=== PATIENT | female | born 1990 ===

== ENCOUNTER 2018-05-12 10:43 | Emergency (ER) | payer OTHER ==
[~2018-05-12] VITALS: Ht 172.7 cm; Wt 113.6 kg
[2018-05-12 10:48] VITALS: BP 162/100
[2018-05-12 12:08] LABS: BASOPHILS # (AUTO) 0.07 x10^3/uL (0-0.1); BASOPHILS % (AUTO) 1 % (0-1); EOSINOPHILS # (AUTO) 0.02 x10^3/uL (0-0.4); EOSINOPHILS % (AUTO) 0 % (1-7); LYMPHOCYTES # (AUTO) 2.78 x10^3/uL (1-3.4); LYMPHOCYTES % (AUTO) 17 % (22-44); MD NO; MEAN CORPUSCULAR HEMOGLOBIN 28.1 pg (27.0-34.8); MEAN CORPUSCULAR HGB CONC 33.6 g/dL (32.4-35.8); MEAN CORPUSCULAR VOLUME 83.6 fL (80-100); MEAN PLATELET VOLUME 8.4 fL (7.4-10.4); MONOCYTES # (AUTO) 0.84 x10^3/uL (0.2-0.8); MONOCYTES % (AUTO) 5 % (2-9); NEUTROPHILS % (AUTO) 77 % (42-75); PLATELET COUNT 355 x10^3/uL (130-400); RED CELL DISTRIBUTION WIDTH 14.2 % (9.6-15.2)
[2018-05-12 12:15] LABS: ALANINE AMINOTRANSFERASE 28 U/L (12-78); ALBUMIN 4.5 g/dL (3.4-5.0); ANION GAP 10 mmol/L (5-15); CHLORIDE 106 mmol/L (98-107); CREATININE 1.08 mg/dL (0.55-1.02)
[2018-05-12 12:17] LABS: ALKALINE PHOSPHATASE 87 U/L (45-117); BILIRUBIN,TOTAL 1.2 mg/dL (0.2-1.0); TOTAL PROTEIN 8.7 g/dL (6.4-8.2)
--- NOTE | 2018-05-12 13:24 | NUR ---
ABULATORY TO RM WITH STEADY GAIT, DISPLAYING RIGORS.
--- NOTE | 2018-05-12 13:57 | NUR ---
MD roberts. plan for IV, meds, Labs
[2018-05-12 14:11] LABS: CULTURE INDICATED? NO; MICROSCOPIC NOT IND
[2018-05-12] MEDS ORDERED: PROMETHAZINE 25 MG/ML, 1ML ONE (14:15)
[2018-05-12] MEDS ORDERED: MORPHINE SULFATE 4 MG/ML, 1ML ONE (14:22)
[2018-05-12] MEDS ORDERED: MORPHINE SULFATE 4 MG/ML, 1ML IVPush PRN (14:30)
[2018-05-12] MEDS ORDERED: PROMETHAZINE 25 MG/ML, 1ML IM ONE (14:30)
[2018-05-12] MEDS ORDERED: MORPHINE SULFATE 4 MG/ML, 1ML IVPush ONE (14:30)
[2018-05-12] MEDS ORDERED: OMNIPAQUE 350 MG/ML, 100ML BOTTLE ONE (14:43)
== END 2018-05-12 15:53 | disposition home or self-care (01) ==
LOC: ED 13:27
DX: R10.12 Left upper quadrant pain (principal); R11.2 Nausea with vomiting, unspecified; D72.829 Elevated white blood cell count, unspecified; K43.9 Ventral hernia without obstruction or gangrene
CPT/HCPCS: 36415; 74177; 80053; 81003; 81025; 83690; 85025; 96372; 96374; 99284; J2550; Q9967

== ENCOUNTER 2018-05-13 13:53 | Emergency (ER) | payer OTHER ==
[~2018-05-13] VITALS: Ht 172.7 cm; Wt 112.1 kg
--- NOTE | 2018-05-13 15:13 | NUR ---
OBSTETRICS NURSE: PT AMBULATORY TO ROOM FROM LOBBY
[2018-05-13] MEDS ORDERED: PANTOPRAZOLE 80 MG in SODIUM CHLORIDE 0.9% 50 ML IVPB ONE (16:00)
[2018-05-13] MEDS ORDERED: PANTOPRAZOLE 80 MG in SODIUM CHLORIDE 0.9% 100 ML IV SCH (16:00)
[2018-05-13] MEDS ORDERED: MORPHINE SULFATE 4 MG/ML, 1ML IVPush PRN (16:00)
[2018-05-13] MEDS ORDERED: ONDANSETRON 2MG/ML, 2ML ONE (16:08)
[2018-05-13] MEDS ORDERED: MAALOX/HYOSCYAMINE/LIDOCAINE 45 ML BTL ONE (16:09)
[2018-05-13 16:10] LABS: BASOPHILS # (AUTO) 0.07 x10^3/uL (0-0.1); BASOPHILS % (AUTO) 1 % (0-1); EOSINOPHILS % (AUTO) 0 % (1-7); LYMPHOCYTES # (AUTO) 2.49 x10^3/uL (1-3.4); LYMPHOCYTES % (AUTO) 17 % (22-44); MD NO; MEAN CORPUSCULAR HEMOGLOBIN 28.1 pg (27.0-34.8); MEAN CORPUSCULAR HGB CONC 33.6 g/dL (32.4-35.8); MEAN CORPUSCULAR VOLUME 83.7 fL (80-100); MEAN PLATELET VOLUME 8.2 fL (7.4-10.4); MONOCYTES % (AUTO) 6 % (2-9); NEUTROPHILS # (AUTO) 10.84 x10^3/uL (1.8-6.8); NEUTROPHILS % (AUTO) 76 % (42-75); PLATELET COUNT 324 x10^3/uL (130-400); RED BLOOD COUNT 5.74 x10^6/uL (3.82-5.3); RED CELL DISTRIBUTION WIDTH 14.8 % (9.6-15.2)
--- NOTE | 2018-05-13 16:12 | NUR ---
SBAR report received from RNCarmel. US at bedside.
[2018-05-13 16:20] LABS: ALANINE AMINOTRANSFERASE 32 U/L (12-78); ALBUMIN 4.4 g/dL (3.4-5.0); ANION GAP 8 mmol/L (5-15); CALCIUM 9.5 mg/dL (8.5-10.1); CHLORIDE 104 mmol/L (98-107); CREATININE 1.02 mg/dL (0.55-1.02)
[2018-05-13 16:22] LABS: ALKALINE PHOSPHATASE 83 U/L (45-117); TOTAL PROTEIN 8.7 g/dL (6.4-8.2)
--- NOTE | 2018-05-13 16:30 | NUR ---
TASK RN at bedside to start IV, give meds, and start IVF.
--- NOTE | 2018-05-13 16:47 | NUR ---
Dr. Alfonso at bedside to discuss ED findings and POC. Pt medicated per APR.
--- NOTE | 2018-05-13 16:57 | NUR ---
Pt reports pain relief from GI cocktail.
[2018-05-13] MEDS ORDERED: SODIUM CHLORIDE 0.9% 1,000 ML IV ONE (17:00)
[2018-05-13] MEDS ORDERED: ONDANSETRON 2MG/ML, 2ML IVPush ONE (17:00)
[2018-05-13] MEDS ORDERED: SODIUM CHLORIDE FLUSH 10ML SYR IVF ONE (17:00)
[2018-05-13] MEDS ORDERED: MAALOX/HYOSCYAMINE/LIDOCAINE 45 ML BTL PO ONE (17:00)
--- NOTE | 2018-05-13 17:39 | NUR ---
PT WITH [facility]. SPOKE WITH SYLVIA AT [facility]. PER SYLVIA SHE WILL ATTEMPT TO GET PT A BED AT [facility]
--- NOTE | 2018-05-13 17:52 | NUR ---
Pt ambulated to bathroom, no assistance required.
--- NOTE | 2018-05-13 18:00 | NUR ---
Pt ambulated back to room.
[2018-05-13] MEDS ORDERED: MORPHINE SULFATE 4 MG/ML, 1ML ONE (18:18)
--- NOTE | 2018-05-13 18:50 | NUR ---
Telephone SBAR report given to RNKayce. Pt made aware of new room assignment at [facility].
--- NOTE | 2018-05-13 19:11 | NUR ---
Pt transferred with [facility], via [facility].
[2018-05-13 19:13] VITALS: BP 135/76
== END 2018-05-13 19:17 | disposition short-term general hospital (02) ==
LOC: ED 16:19
DX: K27.0 Acute peptic ulcer, site unspecified, with hemorrhage (principal); R10.13 Epigastric pain
CPT/HCPCS: 36415; 76700; 80053; 83690; 85025; 86677; 96365; 96375; 99285; C9113; J2405; J7030; 96366